=== PATIENT | female | born 1970 | race Asian ===

== ENCOUNTER 2021-10-12 18:21 | Inpatient (IN) | payer MEDICAID ==
[~2021-10-12] VITALS: Ht 167.6 cm; Wt 64.6 kg
[2021-10-12] MEDS ORDERED: ACETYLCYSTEINE 200MG/ML 20% VIAL 30ML (INJ) IV ONE (18:30)
[2021-10-12] MEDS ORDERED: SODIUM CHLORIDE 0.9% 1,000 ML IV ONE (18:30)
[2021-10-12] MEDS ORDERED: ONDANSETRON HCL 4MG/2ML INJ IV ONE (18:45)
[2021-10-12 19:01] LABS: HEMATOCRIT. 38.6 % (36.0-48.0); HEMOGLOBIN. 12.9 g/dL (12.0-16.0); MEAN CORPUSCULAR HEMOGLOBIN 31.3 pg (28.0-32.0); MEAN CORPUSCULAR VOLUME 93.5 fL (81.0-99.0); MEAN PLATELET VOLUME 7.9 fl (7.4-10.4); PLATELET 252 x1000/uL (130-400); RED BLOOD CELL COUNT 4.13 mill/uL (4.2-5.4); RED CELL DISTRIBUTION WIDTH 13.1 % (11.6-14.6)
[2021-10-12 19:10] LABS: CHLORIDE 109 mEq/L (98-107)
[2021-10-12 19:13] LABS: HCG SCREEN NEGATIVE
[2021-10-12 19:25] LABS: ETHANOL BLOOD < 10 mg/dL
[2021-10-12] MEDS ORDERED: DEXT 5% IV SCH ×4 (19:30→21:00)
[2021-10-12] MEDS ORDERED: ACETYLCYSTEINE IV SCH ×4 (19:30→21:00)
[2021-10-12] MEDS ORDERED: WATER IV SCH ×4 (19:30→21:00)
[2021-10-12 20:18] LABS: PLATELET ESTIMATE NORMAL
[2021-10-12 22:06] LABS: *AMPHETAMINES SCREEN URINE NEGATIVE (NEGATIVE); *BARBITURATES SCREEN URINE NEGATIVE (NEGATIVE); *BENZODIAZEPINES SCREEN URINE NEGATIVE (NEGATIVE); *COCAINE SCREEN URINE NEGATIVE (NEGATIVE); CANNABINOID URINE SCREEN NEGATIVE (NEGATIVE); METHADONE URINE SCREEN NEGATIVE (NEGATIVE); OPIATES URINE SCREEN NEGATIVE (NEGATIVE); PHENCYCLIDINE URINE SCREEN NEGATIVE (NEGATIVE)
[2021-10-12] MEDS ORDERED: NA PHOS,M-B/NA PHOS,DI-BA ENEMA 118ML PR PRN (23:00)
[2021-10-12] MEDS ORDERED: GUAIFENESIN 200MG/10ML SUGAR FREE UDC PO PRN (23:00)
[2021-10-12] MEDS ORDERED: IPRATROPIUM/ALBUTEROL 0.5-3(2.5)MG/3ML NEB NEB PRN (23:00)
[2021-10-12] MEDS: SODIUM CHLORIDE 0.45% 1,000 ML IV SCH (23:00)
[2021-10-12] MEDS ORDERED: ONDANSETRON HCL 4MG/2ML INJ IV PRN (23:00)
[2021-10-12] MEDS ORDERED: HYDROCODONE/ACETAMINOPHEN 5/325MG TABLET PO PRN (23:00)
[2021-10-12] MEDS ORDERED: MAGNESIUM/ALUMINUM HYDROXIDE/SIMETHICONE 30ML UDC PO PRN (23:00)
[2021-10-12] MEDS ORDERED: CLONIDINE 0.1MG TABLET PO PRN (23:00)
[2021-10-12] MEDS ORDERED: MORPHINE SULFATE 2 MG/ML CPJ (NOT FOR IM USE) IV PRN (23:00)
[2021-10-12] MEDS ORDERED: DIPHENHYDRAMINE 50MG/ML VIAL IV PRN (23:00)
[2021-10-12] MEDS ORDERED: IBUPROFEN 600MG TABLET PO PRN (23:15)
[2021-10-13] VITALS (7 sets, daily range): BP systolic 104–149; BP diastolic 64–96
[2021-10-13] MEDS ORDERED: WATER IV SCH ×2 (02:00)
[2021-10-13] MEDS ORDERED: ACETYLCYSTEINE IV SCH ×2 (02:00)
[2021-10-13] MEDS ORDERED: DEXTROSE 5% IV SCH ×2 (02:00)
[2021-10-13 05:51] LABS: BASOPHILS % 0.2 % (0.0-2.0); HEMATOCRIT. 37.1 % (36.0-48.0); HEMOGLOBIN. 12.4 g/dL (12.0-16.0); LYMPHOCYTES % 8.7 % (20.0-50.0); MEAN CORPUSCULAR HEMOGLOBIN 31.2 pg (28.0-32.0); MEAN CORPUSCULAR VOLUME 93.3 fL (81.0-99.0); MEAN PLATELET VOLUME 7.4 fl (7.4-10.4); MONOCYTES % 2.2 % (2.0-8.0); NEUTROPHILS % 88.9 % (40.0-76.0); PLATELET 209 x1000/uL (130-400); RED BLOOD CELL COUNT 3.97 mill/uL (4.2-5.4)
[2021-10-13 05:56] LABS: CHLORIDE 105 mEq/L (98-107)
[2021-10-13] MEDS ORDERED: KCL 20MEQ/100ML X 2 FOR TOTAL KCL 40MEQ/200ML IV SCH (08:00)
[2021-10-13] MEDS ORDERED: NALOXONE HCL 0.4MG/ML VIAL IV PRN (11:30)
[2021-10-13] MEDS: SERTRALINE HCL 50MG TABLET PO SCH (11:39)
[2021-10-13] MEDS: SODIUM CHLORIDE 0.45% 1,000 ML IV SCH ×3 (11:39→20:56)
[2021-10-13] MEDS: BISACODYL 5MG TABLET PO PRN (13:22)
[2021-10-13] MEDS ORDERED: WATER IV ONE (18:00)
[2021-10-13] MEDS ORDERED: POTASSIUM CHLORIDE INJ 40 MEQ in DEXT 5% WATER 250 ML IV ONE (18:00)
[2021-10-13] MEDS ORDERED: ACETYLCYSTEINE IV ONE (18:00)
[2021-10-13] MEDS ORDERED: DEXTROSE 5% IV ONE (18:00)
[2021-10-13] MEDS: KCL 20MEQ/100ML X 2 FOR TOTAL KCL 40MEQ/200ML IV SCH ×2 (20:43→20:56)
[2021-10-14] VITALS: BP 117/64
[2021-10-14 04:00] VITALS: BP 114/68
[2021-10-14 06:28] LABS: HEMATOCRIT. 36.5 % (36.0-48.0); HEMOGLOBIN. 12.6 g/dL (12.0-16.0); MEAN CORPUSCULAR HEMOGLOBIN 31.7 pg (28.0-32.0); MEAN CORPUSCULAR VOLUME 91.4 fL (81.0-99.0); MEAN PLATELET VOLUME 8.2 fl (7.4-10.4); PLATELET 121 x1000/uL (130-400); RED BLOOD CELL COUNT 3.99 mill/uL (4.2-5.4); RED CELL DISTRIBUTION WIDTH 12.9 % (11.6-14.6)
[2021-10-14 06:38] LABS: INR 2.7; PROTHROMBIN TIME 26.5 sec (9.6-11.0)
[2021-10-14 06:50] LABS: CHLORIDE 112 mEq/L (98-107)
[2021-10-14] MEDS: SERTRALINE HCL 50MG TABLET PO SCH (09:21)
[2021-10-14 11:30] VITALS: BP 113/62
[2021-10-14] MEDS: SODIUM CHLORIDE 0.45% 1,000 ML IV SCH (11:44)
[2021-10-14] MEDS ORDERED: DEXT 5% IV ONE (13:45)
[2021-10-14] MEDS ORDERED: WATER IV ONE (13:45)
[2021-10-14] MEDS ORDERED: ACETYLCYSTEINE IV ONE (13:45)
[2021-10-14] MEDS: LACTULOSE 20G/30ML UDC PO SCH ×2 (14:22→21:55)
[2021-10-14 15:30] VITALS: BP 110/61
[2021-10-14] MEDS ORDERED: WATER IV NR (15:30)
[2021-10-14] MEDS ORDERED: DEXT 5% IV NR (15:30)
[2021-10-14] MEDS ORDERED: ACETYLCYSTEINE IV NR (15:30)
[2021-10-14 16:19] LABS: INR 1.9; PROTHROMBIN TIME 19.2 sec (9.6-11.0)
[2021-10-14] MEDS: BISACODYL 5MG TABLET PO PRN (18:17)
[2021-10-14 19:05] VITALS: BP 115/64
[2021-10-14 20:00] VITALS: BP 114/70
[2021-10-15] VITALS (7 sets, daily range): BP systolic 99–118; BP diastolic 56–72
[2021-10-15] MEDS: SODIUM CHLORIDE 0.45% 1,000 ML IV SCH ×2 (00:29→15:04)
[2021-10-15 05:28] LABS: BASOPHILS % 0.5 % (0.0-2.0); EOSINOPHILS % 1.4 % (0.0-5.0); HEMATOCRIT. 36.5 % (36.0-48.0); HEMOGLOBIN. 12.3 g/dL (12.0-16.0); LYMPHOCYTES % 9.6 % (20.0-50.0); MEAN CORPUSCULAR HEMOGLOBIN 30.9 pg (28.0-32.0); MEAN CORPUSCULAR VOLUME 91.6 fL (81.0-99.0); MONOCYTES % 3.4 % (2.0-8.0); NEUTROPHILS % 85.1 % (40.0-76.0); PLATELET 101 x1000/uL (130-400); RED BLOOD CELL COUNT 3.99 mill/uL (4.2-5.4); RED CELL DISTRIBUTION WIDTH 12.8 % (11.6-14.6)
[2021-10-15] MEDS: LACTULOSE 20G/30ML UDC PO SCH ×3 (05:29→22:22)
[2021-10-15 05:50] LABS: INR 1.7; PROTHROMBIN TIME 17.2 sec (9.6-11.0)
[2021-10-15 06:01] LABS: CHLORIDE 110 mEq/L (98-107)
[2021-10-15] MEDS: SERTRALINE HCL 50MG TABLET PO SCH (08:33)
[2021-10-15] MEDS: PHYTONADIONE 10MG/ML AMP SUBCUT SCH (08:34)
[2021-10-15 09:35] LABS: PLATELET ESTIMATE SLIGHTLY DECREASED
[2021-10-15] MEDS ORDERED: POTASSIUM CHLORIDE 20MEQ TABLET SR PO NR (10:45)
[2021-10-15] MEDS: DOCUSATE SODIUM 100MG CAPSULE PO PRN (10:50)
[2021-10-15 12:36] LABS: BASOPHILS % 0.3 % (0.0-2.0); EOSINOPHILS % 1.3 % (0.0-5.0); HEMATOCRIT. 35.2 % (36.0-48.0); HEMOGLOBIN. 11.8 g/dL (12.0-16.0); LYMPHOCYTES % 10.8 % (20.0-50.0); MEAN CORPUSCULAR HEMOGLOBIN 30.9 pg (28.0-32.0); MONOCYTES % 3.8 % (2.0-8.0); NEUTROPHILS % 83.8 % (40.0-76.0); PLATELET 105 x1000/uL (130-400); RED BLOOD CELL COUNT 3.82 mill/uL (4.2-5.4); RED CELL DISTRIBUTION WIDTH 12.8 % (11.6-14.6)
[2021-10-15 12:46] LABS: INR 1.4; PROTHROMBIN TIME 15.1 sec (9.6-11.0)
[2021-10-15 12:51] LABS: CHLORIDE 109 mEq/L (98-107)
[2021-10-16] VITALS: BP 120/70
[2021-10-16] MEDS: SODIUM CHLORIDE 0.45% 1,000 ML IV SCH ×3 (02:00→21:07)
[2021-10-16 04:00] VITALS: BP 105/58
[2021-10-16] MEDS: LACTULOSE 20G/30ML UDC PO SCH ×2 (05:26→14:28)
[2021-10-16 07:06] LABS: BASOPHILS % 0.4 % (0.0-2.0); EOSINOPHILS % 1.7 % (0.0-5.0); HEMATOCRIT. 35.2 % (36.0-48.0); HEMOGLOBIN. 11.7 g/dL (12.0-16.0); LYMPHOCYTES % 14.9 % (20.0-50.0); MEAN CORPUSCULAR VOLUME 93.3 fL (81.0-99.0); MEAN PLATELET VOLUME 8.1 fl (7.4-10.4); MONOCYTES % 6.8 % (2.0-8.0); NEUTROPHILS % 76.2 % (40.0-76.0); PLATELET 120 x1000/uL (130-400); RED BLOOD CELL COUNT 3.78 mill/uL (4.2-5.4); RED CELL DISTRIBUTION WIDTH 12.9 % (11.6-14.6)
[2021-10-16 07:14] LABS: INR 1.1; PROTHROMBIN TIME 11.7 sec (9.6-11.0)
[2021-10-16 07:19] LABS: CHLORIDE 112 mEq/L (98-107)
[2021-10-16 07:33] VITALS: BP 90/50
[2021-10-16] MEDS: PHYTONADIONE 10MG/ML AMP SUBCUT SCH (08:17)
[2021-10-16] MEDS: SERTRALINE HCL 50MG TABLET PO SCH (08:17)
[2021-10-16 12:07] VITALS: BP 94/56
[2021-10-16] MEDS: DOCUSATE SODIUM 100MG CAPSULE PO PRN (14:28)
[2021-10-16 15:17] VITALS: BP 103/58
[2021-10-16 20:00] VITALS: BP 99/51
[2021-10-17] VITALS (7 sets, daily range): BP systolic 93–112; BP diastolic 48–67
[2021-10-17] MEDS: LORAZEPAM 2MG/ML CPJ IV PRN ×2 (01:35→22:59)
[2021-10-17] MEDS: LACTULOSE 20G/30ML UDC PO SCH ×4 (01:36→21:34)
[2021-10-17 06:27] LABS: CHLORIDE 115 mEq/L (98-107)
[2021-10-17 06:28] LABS: PROTHROMBIN TIME 10.9 sec (9.6-11.0)
[2021-10-17 06:37] LABS: BASOPHILS % 0.2 % (0.0-2.0); EOSINOPHILS % 2.2 % (0.0-5.0); HEMATOCRIT. 33.7 % (36.0-48.0); HEMOGLOBIN. 11.4 g/dL (12.0-16.0); LYMPHOCYTES % 19.9 % (20.0-50.0); MEAN CORPUSCULAR HEMOGLOBIN 31.4 pg (28.0-32.0); MEAN CORPUSCULAR VOLUME 93.4 fL (81.0-99.0); MEAN PLATELET VOLUME 7.8 fl (7.4-10.4); MONOCYTES % 14.1 % (2.0-8.0); NEUTROPHILS % 63.6 % (40.0-76.0); PLATELET 133 x1000/uL (130-400); RED BLOOD CELL COUNT 3.61 mill/uL (4.2-5.4); RED CELL DISTRIBUTION WIDTH 12.9 % (11.6-14.6)
[2021-10-17] MEDS: SERTRALINE HCL 50MG TABLET PO SCH (09:37)
[2021-10-17] MEDS: PHYTONADIONE 10MG/ML AMP SUBCUT SCH (09:37)
[2021-10-17] MEDS: SODIUM CHLORIDE 0.45% 1,000 ML IV SCH (14:08)
[2021-10-18] MEDS: SODIUM CHLORIDE 0.45% 1,000 ML IV SCH ×3 (03:41→20:19)
[2021-10-18 04:00] VITALS: BP 110/68
[2021-10-18] MEDS: LACTULOSE 20G/30ML UDC PO SCH ×3 (05:02→20:19)
[2021-10-18 06:45] LABS: PROTHROMBIN TIME 10.4 sec (9.6-11.0)
[2021-10-18 07:53] VITALS: BP 102/68
[2021-10-18] MEDS: SERTRALINE HCL 50MG TABLET PO SCH (08:26)
[2021-10-18] MEDS: PHYTONADIONE 10MG/ML AMP SUBCUT SCH (08:26)
[2021-10-18 12:00] VITALS: BP 94/55
[2021-10-18 16:00] VITALS: BP 93/21
[2021-10-18 20:00] VITALS: BP 101/58
[2021-10-19] VITALS: BP 105/65
[2021-10-19 04:00] VITALS: BP 110/66
[2021-10-19] MEDS: LACTULOSE 20G/30ML UDC PO SCH (05:35)
[2021-10-19 08:00] VITALS: BP 103/62
[2021-10-19] MEDS: SERTRALINE HCL 50MG TABLET PO SCH (08:27)
[2021-10-19 12:00] VITALS: BP 95/60
[2021-10-19 16:00] VITALS: BP 95/60
== END 2021-10-19 19:00 | DRG 817 ==
LOC: ER 18:21 → MICUSO 21:21 → 8WST 10-13 06:55
PROVIDERS: ADMIT Internal Medicine; ATTEND Internal Medicine
DX: T39.1X2A Poisoning by 4-Aminophenol derivatives, intentional self-harm, initial encounter (principal); E87.2 Acidosis; D68.9 Coagulation defect, unspecified; F33.2 Major depressive disorder, recurrent severe without psychotic features; E72.20 Disorder of urea cycle metabolism, unspecified; F25.9 Schizoaffective disorder, unspecified; E86.0 Dehydration; E87.6 Hypokalemia; Z79.899 Other long term (current) drug therapy; Z91.51 Personal history of suicidal behavior; Y92.89 Other specified places as the place of occurrence of the external cause; R74.01 Elevation of levels of liver transaminase levels; Z20.822 Contact with and (suspected) exposure to COVID-19
CPT/HCPCS: 36415; 76700; 80048; 80053; 80076; 80305; 80307; 80320; 80329; 82140; 83605; 84450; 84460; 84484; 84703; 85025; 87426; 93005; 99291; J0132; J2060; J2405; J3430; J3480; J7030; J7060; J7070; U0003; U0005; G0480